=== PATIENT | female | born 1940 | race Caucasian/White ===

== ENCOUNTER → 2024-10-07 | Outpatient (CLI) | payer MEDICARE, OTHER, SELFPAY ==
--- NOTE | 2024-10-07 15:07 | MRI_ITS ---
PROCEDURE: SPINE LUMBAR (ROUTINE) 10/07/2024 REASON FOR EXAM: PERSISTENT PAIN AFTER FUSION TECHNIQUE: SPINE LUMBAR (ROUTINE) COMPARISON: 06/22/2023 FINDINGS: Prior fusion between L3 and L4. Lowest visible disc space S1-S2. No compression fracture. No marrow edema. Normal conus. Negative for retroperitoneal mass. At L1-2, there is minimal annular bulging with a mild degree of canal narrowing. At L2-3, there is moderate canal narrowing which is increased in prominence when compared to the prior study secondary to adjacent level pathology. At L3-4 dorsal decompression and pedicle screw fusion without visible recurrent pathology. L4-5 demonstrates postsurgical changes without recurrent central or foraminal stenosis. L5-S1 is partially transitional but unremarkable. MRI/Spine Lumbar (Routine) IMPRESSION: Adjacent level increasing moderate spinal stenosis at L2-3 when compared to the prior study. No recurrent pathology at L3-4, L4-5 and L5-S1. Reading Location: [id number]
== END | disposition home or self-care (01) ==
LOC: MRI 15:00
PROVIDERS: PCP Family Medicine; Referring Provider Orthopaedic Surgery Orthopaedic Surgery of the Spine; Visit Provider Orthopaedic Surgery Orthopaedic Surgery of the Spine
DX: M54.16 Radiculopathy, lumbar region (principal); Z98.1 Arthrodesis status
CPT/HCPCS: 72148